=== PATIENT | male | born 1990 | race Caucasian/White ===

== ENCOUNTER 2021-09-23 17:50 | Emergency (ER) | payer OTHER ==
[~2021-09-23] VITALS: Ht 182.9 cm; Wt 86.9 kg
[2021-09-23] MEDS ORDERED: CYCL-707 PO (18:01)
[2021-09-23] MEDS ORDERED: DICL75TA PO (18:01)
[2021-09-23] MEDS: GI COCKTAIL 50ML BTL(HYOSCYAMINE/MAALOX/LIDOCAINE VISCOUS)(1:3:1) PO ONE (20:09)
[2021-09-23] MEDS: LIDOCAINE 5% (LIDODERM) PATCH TD ONE (20:10)
[2021-09-23] MEDS: KETOROLAC TROMETHAMINE 10 MG TAB PO ONE (20:28)
[2021-09-23 20:44] VITALS: BP 137/72
[2021-09-23] MEDS ORDERED: CYCL5TAB PO (21:08)
[2021-09-24] MEDS ORDERED: **NOTE PATIENT COMMENT** MISC XX SCH (07:00)
--- NOTE | 2021-09-24 08:33 | ECGEPIP ---
[facility] - ED Test Date: 2021-09-23 Pat Name: ALEJANDRO HARTMAN Department: Room: - Gender: Male Senior [employer]: DONNA : 1990 Requested By: RONIT Mason PA-C Order Number: [id number] Reading MD: Buck Bain Measurements Intervals [place] Rate: 84 P: 9 NH: 138 QRS: 60 QRSD: 86 T: 26 QT: 354 QTc: 418 Interpretive Statements Normal sinus rhythm with sinus arrhythmia POOR R WAVE PROGRESSION NONSPECIFIC T WAVE ABNORMALITY(S) NO PRIORS FOR COMPARISON Electronically Signed on 09-24-2021 8:32:53 EST by Buck Bain
== END 2021-09-23 21:31 | disposition home or self-care (01) ==
LOC: M ED 17:50
DX: M54.6 Pain in thoracic spine (principal); R94.31 Abnormal electrocardiogram [ECG] [EKG]; F41.9 Anxiety disorder, unspecified; F33.9 Major depressive disorder, recurrent, unspecified; Z79.899 Other long term (current) drug therapy; Z91.030 Bee allergy status